=== PATIENT | male | born 1975 | race American Indian/Alaskan Native ===

== ENCOUNTER 2017-02-02 01:53 | Emergency (ER) | payer MEDICAID, OTHER ==
[2017-02-02] MEDS ORDERED: Lidocaine 1% with EPINEPHrine 1:100,000 20 ML MDV INJECT ONE (02:09)
[2017-02-02] MEDS ORDERED: Diphtheria,Pertussis(Acell),Tetanus Vaccine 0.5 ML SDV IM ONE (03:26)
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
== END 2017-02-02 04:00 ==
LOC: FB.ED 01:53
DX: S51.812A Laceration without foreign body of left forearm, initial encounter (principal); F10.129 Alcohol abuse with intoxication, unspecified; Z23 Encounter for immunization; X99.0XXA Assault by sharp glass, initial encounter
CPT/HCPCS: 12001; 12004; 80305; 81003; 90472; 90715; 99283